=== PATIENT | male | born 1970 | race Two or more races ===

== ENCOUNTER 2023-07-01 10:25 | Emergency (ER) | payer MEDICAID, OTHER ==
[~2023-07-01] VITALS: Ht 157.5 cm; Wt 100.1 kg
[2023-07-01 12:02] LABS: Urine WBC None Seen /hpf (0 - 3)
[2023-07-01 12:25] LABS: Urine Bacteria FEW /hpf (None Seen); Urine Blood TRACE /uL (Negative); Urine Clarity Clear (Clear); Urine Color Colorless (Yellow); Urine Protein, UAD Negative (Negative); Urine Specific Gravity 1.004 (1.001-1.035); Urine Urobilinogen Normal (Negative); Urine pH 5.5 (5.0-9.0)
[2023-07-01 12:51] VITALS: BP 129/91; PULSE 87; RESP 16; TEMP 98.9; O2SAT 97
[2023-07-01 13:49] LABS: Basophils # (auto) 0.1 10 ^3/uL (0-0.2); Basophils % (auto) 0.7 % (0.0-2.0); Eosinophils # (auto) 0.1 10 ^3/uL (0-0.8); Eosinophils % (auto) 1.7 % (0.0-7.0); Hematocrit 49.1 % (41.0-53.0); Hemoglobin 16.7 g/dL (13.5-17.5); Lymphocytes # (auto) 2.4 10 ^3/uL (0.4-5.4); Lymphocytes % (auto) 28.4 % (10.0-50.0); Mean Corpuscular Hemoglobin 32.2 pg (28.0-32.0); Mean Corpuscular Hgb Conc. 33.9 g/dL (32.0-36.0); Mean Corpuscular Volume 94.8 fL (80.0-100.0); Monocytes # (auto) 0.6 10 ^3/uL (0-1.3); Neutrophils # (auto) 5.2 10 ^3/uL (1.6-8.6); Neutrophils % (auto) 62.2 % (37.0-80.0); Nucleated Red Blood Cells % 0.1 %; Red Blood Cells 5.18 10^6/uL (4.5-5.90); Red Cell Distribution Width 14.4 % (11.8-14.3); White Blood Cell 8.3 10^3/uL (4.4-10.8)
[2023-07-01 14:01] LABS: Albumin 4.3 g/dL (3.2-4.8); Alkaline Phosphatase 87 U/L (46-116); Anion Gap 0 (5-15); Aspartate Aminotransferase 12 U/L (13-40); BUN/Creatinine Ratio 12.1 (10.0-20.0); Bilirubin, Total 0.5 mg/dL (0.2-1.0); Blood Urea Nitrogen 11 mg/dL (9-23); Calcium 9.6 mg/dL (8.7-10.4); Carbon Dioxide 24 mmol/L (20-30); Chloride 113 mmol/L (98-107); Glucose 95 mg/dL (74-106); Lipase 33 U/L (12-53); Potassium 4.1 mmol/L (3.5-5.1); Sodium 137 mmol/L (136-145); Total Protein 7.1 g/dL (5.7-8.2)
[2023-07-01 14:15] LABS: Alanine Aminotransferase < 9 U/L (7-40)
[2023-07-01] MEDS ORDERED: MESA0.37 PO (14:29)
[2023-07-01] MEDS ORDERED: PANT40TA2 PO (14:29)
[2023-07-01] MEDS ORDERED: PRED20TA2 PO (14:29)
[2023-07-01] MEDS ORDERED: CIPR-173 PO (14:40)
== END 2023-07-01 14:48 | disposition home or self-care (01) ==
LOC: ER 10:25
DX: K52.9 Noninfective gastroenteritis and colitis, unspecified (principal); R31.29 Other microscopic hematuria; Z88.0 Allergy status to penicillin; Z79.899 Other long term (current) drug therapy
CPT/HCPCS: 36415; 74176; 80053; 81001; 83690; 85025; 87086